=== PATIENT | female | born 1995 | race Two or more races ===

== ENCOUNTER 2020-06-29 09:38 | Emergency (ER) | payer MEDICAID ==
[~2020-06-29] VITALS: Ht 165.1 cm; Wt 83.9 kg
[2020-06-29 10:33] VITALS: BP 111/69
== END 2020-06-29 10:33 | disposition home or self-care (01) ==
LOC: ER 09:38
DX: O23.43 Unspecified infection of urinary tract in pregnancy, third trimester (principal); O26.893 Other specified pregnancy related conditions, third trimester; J06.9 Acute upper respiratory infection, unspecified; Z3A.29 29 weeks gestation of pregnancy
CPT/HCPCS: 81002

== ENCOUNTER 2020-08-18 09:50 | Observation (INO) | payer MEDICAID | END 2020-08-18 11:26 | disposition home or self-care (01) | LOC: LDRP 09:50 | PROVIDERS: ADMIT Specialist; ATTEND Specialist | DX: O24.410 Gestational diabetes mellitus in pregnancy, diet controlled (principal); Z3A.35 35 weeks gestation of pregnancy | CPT/HCPCS: 59025; 76818; 81002; 82962; G0378 ==

== ENCOUNTER 2020-08-22 09:49 | Observation (INO) | payer MEDICAID ==
[~2020-08-22 09:49] MED LIST: PREN-96 PO
[2020-08-22] MEDS ORDERED: PREN-96 PO (10:43)
== END 2020-08-22 10:42 | disposition home or self-care (01) ==
LOC: LDRP 09:49
PROVIDERS: ADMIT Obstetrics & Gynecology; ATTEND Obstetrics & Gynecology
DX: O24.419 Gestational diabetes mellitus in pregnancy, unspecified control (principal); Z3A.35 35 weeks gestation of pregnancy
CPT/HCPCS: 59025; 76818; 81002; 82948; 82962; G0378

== ENCOUNTER 2020-08-25 10:45 | Observation (INO) | payer MEDICAID ==
--- NOTE | 2020-08-25 11:36 | NUR ---
PRE OP IN HOUSE COVID TEST COLLECTED.
== END 2020-08-25 12:15 | disposition home or self-care (01) ==
LOC: LDRP 10:45
PROVIDERS: ADMIT Specialist; ATTEND Specialist
DX: O24.419 Gestational diabetes mellitus in pregnancy, unspecified control (principal); Z20.828 Contact with and (suspected) exposure to other viral communicable diseases; O36.5930 Maternal care for other known or suspected poor fetal growth, third trimester, not applicable or unspecified; Z3A.36 36 weeks gestation of pregnancy
CPT/HCPCS: 59025; 76818; 81002; 82948; 82962; G0378; U0003

== ENCOUNTER 2020-08-28 08:00 | Inpatient (IN) | payer MEDICAID ==
[~2020-08-28] VITALS: Ht 165.1 cm; Wt 79.4 kg
[2020-08-28] VITALS (11 sets, daily range): BP systolic 95–105; BP diastolic 49–61
[2020-08-28] MEDS ORDERED: LACTATED RINGER'S 1,000 ML IV ONE (08:15)
[2020-08-28] MEDS ORDERED: ceFAZolin 1GM/50ML 50 ML IV ONE (08:15)
[2020-08-28 08:59] LABS: Basophils # (auto) 0 10 ^3/uL (0-0.2); Basophils % (auto) 0.5 % (0.0-2.0); Eosinophils # (auto) 0 10 ^3/uL (0-0.8); Eosinophils % (auto) 0.5 % (0.0-7.0); Hemoglobin 11.1 g/dL (12.2-16.2); Lymphocytes # (auto) 1.4 10 ^3/uL (0.4-5.4); Lymphocytes % (auto) 20.6 % (10.0-50.0); Mean Corpuscular Hemoglobin 29.6 pg (28.0-32.0); Mean Corpuscular Hgb Conc. 33.6 g/dL (32.0-36.0); Mean Corpuscular Volume 88.2 fL (80.0-100.0); Monocytes # (auto) 0.5 10 ^3/uL (0-1.3); Monocytes % (auto) 7.4 % (0.0-12.0); Neutrophils # (auto) 4.7 10 ^3/uL (1.6-8.6); Nucleated Red Blood Cells % 0.1 %; Platelet Count (auto) 162 10^3/uL (140-450); Red Blood Cells 3.74 10^6/uL (4.0-5.20); Red Cell Distribution Width 17.2 % (11.8-14.3); White Blood Cell 6.6 10^3/uL (4.4-10.8)
[2020-08-28 09:02] LABS: Urine Bacteria FEW /hpf (None Seen); Urine Blood Negative /uL (Negative); Urine Mucus FEW (None Seen); Urine Specific Gravity 1.016 (1.001-1.035); Urine WBC 4 /hpf (0 - 5)
[2020-08-28 09:13] LABS: INR 0.92 (0.9-1.15); Partial Thromboplastin Time 26.8 sec (23.0-31.2)
[2020-08-28 09:23] LABS: Albumin 2.8 g/dL (3.4-5.0); Calcium 8.7 mg/dL (8.5-10.1); Potassium 3.6 mmol/L (3.5-5.1)
[2020-08-28 09:26] LABS: BUN/Creatinine Ratio 19.4; Bilirubin, Total 0.2 mg/dL (0.2-1.0); Total Protein 6.4 g/dL (6.4-8.2)
[2020-08-28] MEDS ORDERED: TETRACAINE 1% INJ 2 ML VIAL IJ ONE (12:54)
[2020-08-28] MEDS ORDERED: PHENYLEPHRINE HCL 10 MG/ML VL IV ONE (12:55)
[2020-08-28] MEDS ORDERED: MORPHINE SULF(PF) 0.5MG/ML 10ML VIAL ONE (13:04)
[2020-08-28] MEDS ORDERED: MIDAZOLAM HCL 1MG/1ML-2 ML VIAL ONE (13:04)
[2020-08-28] MEDS ORDERED: fentaNYL CITRATE 100 MCG/2 ML VL ONE (13:04)
[2020-08-28] MEDS ORDERED: oxyTOCIN 10 UNIT/ML 10ML VIAL ONE (13:27)
[2020-08-28] MEDS ORDERED: ONDANSETRON HCL 4 MG/2 ML VIAL IV PRN ×4 (14:15→18:00)
[2020-08-28] MEDS ORDERED: LACT. RINGERS/OXYTOCIN 20UNITS 1,000 ML IV SCH (14:15)
[2020-08-28] MEDS ORDERED: MORPHINE SULFATE 4 MG/ML SYR/VIAL IV PRN ×2 (14:15→15:00)
[2020-08-28] MEDS ORDERED: ceFAZolin 1GM/50ML 50 ML IV SCH ×2 (14:15)
[2020-08-28] MEDS ORDERED: HYDROmorphone HCL 2 MG/ML VL IV PRN ×2 (15:00)
[2020-08-28] MEDS ORDERED: MIDAZOLAM HCL 1MG/1ML-2 ML VIAL IV PRN (15:00)
[2020-08-28] MEDS ORDERED: ePHEDrine SULFATE 50 MG/ML AMP IV PRN (15:00)
[2020-08-28] MEDS ORDERED: NALBUPHINE HCL 10 MG/1ml INJECTION SUBCUT ONE (15:00)
[2020-08-28] MEDS ORDERED: LABETALOL HCL 5 MG/ML 4ML SYRINGE IV PRN (15:00)
[2020-08-28] MEDS ORDERED: diphenhdrAMINE HCL 50 MG/1 ML VL IV PRN (15:00)
[2020-08-28] MEDS ORDERED: NALOXONE HCL 0.4 MG/ML VIAL IV PRN (15:00)
[2020-08-28] MEDS ORDERED: DexAMETHasone SOD PHOS 10MG/1ML VIAL INJ IV PRN (15:00)
[2020-08-28] MEDS: LACTATED RINGER'S 1,000 ML IV SCH ×2 (17:21→21:45)
--- NOTE | 2020-08-28 17:38 | NUR ---
Assumed care of patient after receiving report from Garrett Medina RN .
[2020-08-28] MEDS: KETOROLAC TROMETH 30 MG/ML 1ML VIAL IV PRN (19:20)
[2020-08-28] MEDS: ceFAZolin 1GM/50ML 50 ML IV SCH (21:38)
[2020-08-28 22:23] LABS: Basophils # (auto) 0 10 ^3/uL (0-0.2); Basophils % (auto) 0.3 % (0.0-2.0); Eosinophils # (auto) 0 10 ^3/uL (0-0.8); Eosinophils % (auto) 0.2 % (0.0-7.0); Hematocrit 33.6 % (36.0-46.0); Hemoglobin 11.4 g/dL (12.2-16.2); Lymphocytes # (auto) 1.6 10 ^3/uL (0.4-5.4); Lymphocytes % (auto) 15.3 % (10.0-50.0); Mean Corpuscular Hemoglobin 29.9 pg (28.0-32.0); Monocytes # (auto) 0.6 10 ^3/uL (0-1.3); Monocytes % (auto) 6.3 % (0.0-12.0); Neutrophils # (auto) 7.9 10 ^3/uL (1.6-8.6); Neutrophils % (auto) 77.9 % (37.0-80.0); Nucleated Red Blood Cells % 0.1 %; Platelet Count (auto) 164 10^3/uL (140-450); Red Blood Cells 3.82 10^6/uL (4.0-5.20); Red Cell Distribution Width 16.9 % (11.8-14.3); White Blood Cell 10.2 10^3/uL (4.4-10.8)
[2020-08-29] VITALS (15 sets, daily range): BP systolic 92–122; BP diastolic 50–77
--- NOTE | 2020-08-29 05:00 | NUR ---
Godwin catheter dc'd Order to discontinue godwin catheter. Godwin dc'd with clean technique following deflation of balloon. Patient tolerated well with no complaints of pain. Continue care.
[2020-08-29] MEDS: ceFAZolin 1GM/50ML 50 ML IV SCH (05:25)
[2020-08-29] MEDS: KETOROLAC TROMETH 30 MG/ML 1ML VIAL IV PRN (05:25)
--- NOTE | 2020-08-29 06:50 | NUR ---
Ambulation: Patient OOB with standby assistance by RN. Patient ambulated to bathroom with steady gait. Patient unable to void at this time. Pericare teaching provided with returned demonstration by patient. Clean gown provided and bed linen changed. Patient ambulated back to chair with steady gait and no distress noted.
[2020-08-29] MEDS ORDERED: BISACODYL 10 MG RECT SUPP PR PRN (09:00)
[2020-08-29 09:10] LABS: Basophils # (auto) 0 10 ^3/uL (0-0.2); Basophils % (auto) 0.3 % (0.0-2.0); Eosinophils # (auto) 0 10 ^3/uL (0-0.8); Eosinophils % (auto) 0.1 % (0.0-7.0); Hematocrit 33.2 % (36.0-46.0); Hemoglobin 11.1 g/dL (12.2-16.2); Lymphocytes # (auto) 0.5 10 ^3/uL (0.4-5.4); Lymphocytes % (auto) 5.6 % (10.0-50.0); Mean Corpuscular Hemoglobin 29.7 pg (28.0-32.0); Mean Corpuscular Hgb Conc. 33.4 g/dL (32.0-36.0); Mean Corpuscular Volume 88.8 fL (80.0-100.0); Monocytes # (auto) 0.5 10 ^3/uL (0-1.3); Monocytes % (auto) 5.5 % (0.0-12.0); Neutrophils # (auto) 8.4 10 ^3/uL (1.6-8.6); Neutrophils % (auto) 88.5 % (37.0-80.0); Platelet Count (auto) 167 10^3/uL (140-450); Red Blood Cells 3.74 10^6/uL (4.0-5.20); Red Cell Distribution Width 17.2 % (11.8-14.3); White Blood Cell 9.5 10^3/uL (4.4-10.8)
[2020-08-29] MEDS: DOCUSATE CALCIUM 240 MG CAP PO SCH (10:10)
[2020-08-29] MEDS: DOCUSATE SOD 100 MG CAP PO SCH (10:10)
[2020-08-29] MEDS: HYDROcodone-ACET 5/325MG TAB PO PRN ×3 (10:12→19:15)
[2020-08-29] MEDS: SIMETHICONE 80 MG CHEWABLE TABLET PO SCH ×2 (12:17→17:55)
[2020-08-29] MEDS: IBUPROFEN 800 MG TAB PO PRN (12:19)
[2020-08-29] MEDS ORDERED: ceFAZolin 1GM/50ML 50 ML IV ONE ×2 (12:57→13:00)
--- NOTE | 2020-08-29 21:50 | NUR ---
2150: This RN responses to pt call light. This RN enter pt's room and finds pt sitting up in bed feeding infant with bottle. RN asks pt what does she need and pt struggles to communicate. RN continues attempting to communicate with pt. Pt unable to verbally communicate at this time - PT. unable to answer Person, Place, Time, Date or Orientation questions. RN notifies charge nurse and additional [facility] staff. 2200: Charge nurse and [facility] staff enter room to assist RN. Pt. altered and unable to fully communicate. Call is placed for a flagsetter. VS taken: BP 132/74, pulse 115, RR 18, O2 placed on pt at 5 LPM via non rebreather face mask. Pt pulse ox 100%. 2209: Gabbie screening technician arrives to pt room and attempts to communicate with pt in [place]ambian. Pt speaking non understandable words. PT. unable to answer Person, Place, Time, Date or Orientation. questions. 2211: Code Assist called. See code assist sheet for further notes. 2227: Straight cath performed for U/A by this RN (Brigitte Fitzgerald) per Jonatan Banda, INSTRUCTOR OF SPANISH order. 2235: Chest x-ray performed at bedside per IN[employer] SPANISH order. 2240: cogeneration technician at bedside to draw pt's blood per IN[employer] SPAN[employer] order. PT. able to articulate her full name however unable to articulate Place, Time, Date or Orientation. 2245: LR bolus of 500 completed per INSTRUCTOR OF SPANISH orders, LR now running at 125mL/hr. VS: BP 122/66, pulse 109, pulse ox 96, T 100.5, pt no longer on O2 at this time. RN remains at bedside with pt. 2304:Radiology techs call for pt, states they will come to help transport pt. 2310: Pt leaves the [facility] unit via hospital bed and transported for CT scan by Radiology techs. 2320: Pt returns to unit and placed back in her room. Pt communicating more at this time and is able to answer simple questions in [place]ambian. PT. accurately answers Person, Place, Time and Date questions however, does not know name of hospital where she is currently admitted. VS taken: BP 106/63, pulse 113, pulse ox 96% on room air. 2330: T 99.4, pt sitting up in bed at this time and seen checking her phone.
--- NOTE | 2020-08-29 22:35 | NUR ---
Dr. Lan given report on PT. status including altered level of consciousness and subsequent Code Assist with Jonatan Banda NP as the at-bedside Provider. Dr. Lan verbalizes understanding.
--- NOTE | 2020-08-29 22:56 | NUR ---
This RN calls Radiology - no answer.
[2020-08-29 22:58] LABS: Basophils # (auto) 0 10 ^3/uL (0-0.2); Basophils % (auto) 0.7 % (0.0-2.0); Eosinophils # (auto) 0.1 10 ^3/uL (0-0.8); Hemoglobin 10.6 g/dL (12.2-16.2); Lymphocytes # (auto) 0.5 10 ^3/uL (0.4-5.4); Lymphocytes % (auto) 8.1 % (10.0-50.0); Mean Corpuscular Hemoglobin 30.1 pg (28.0-32.0); Mean Corpuscular Hgb Conc. 34.4 g/dL (32.0-36.0); Mean Corpuscular Volume 87.6 fL (80.0-100.0); Monocytes # (auto) 0.6 10 ^3/uL (0-1.3); Monocytes % (auto) 9.5 % (0.0-12.0); Neutrophils # (auto) 5.2 10 ^3/uL (1.6-8.6); Neutrophils % (auto) 80.7 % (37.0-80.0); Platelet Count (auto) 147 10^3/uL (140-450); Red Blood Cells 3.53 10^6/uL (4.0-5.20); Red Cell Distribution Width 17.1 % (11.8-14.3); White Blood Cell 6.5 10^3/uL (4.4-10.8)
--- NOTE | 2020-08-29 22:58 | NUR ---
DASHAWN transfers this RN to alternate telephone extension in Radiology. Report on STAT Head CT ordered given to Jp who verbalizes he will call me back when ready for Patient.
--- NOTE | 2020-08-29 23:03 | NUR ---
Jp from Radiology calls this RN to bring Patient to [facility] Lobby.
[2020-08-29 23:21] LABS: Albumin 2.4 g/dL (3.4-5.0); BUN/Creatinine Ratio 10.2; Calcium 8.9 mg/dL (8.5-10.1); Potassium 3.6 mmol/L (3.5-5.1)
[2020-08-29 23:27] LABS: Bilirubin, Total 0.5 mg/dL (0.2-1.0); Total Protein 6.1 g/dL (6.4-8.2)
[2020-08-29 23:42] LABS: Urine Bacteria FEW /hpf (None Seen); Urine Blood TRACE /uL (Negative); Urine Hyaline Cast FEW /lpf (0 - 2); Urine Mucus FEW (None Seen); Urine Specific Gravity 1.012 (1.001-1.035); Urine WBC 4 /hpf (0 - 5)
[2020-08-30] VITALS (9 sets, daily range): BP systolic 92–117; BP diastolic 53–81
--- NOTE | 2020-08-30 00:05 | NUR ---
CT, CXR, UA, Lactic, CMP, CBC results printed and hand carried to Jonatan Banda NP who reviews and verbalizes PT. is stable to remain on [facility] with Neurology Consult to be ordered.
--- NOTE | 2020-08-30 00:10 | NUR ---
Neurology Consult ordered by Shannon Banda NP for 08/30/20 @ 0010.
[2020-08-30] MEDS ORDERED: SODIUM CHLORIDE 0.9% 500 ML IV ONE (00:15)
[2020-08-30] MEDS: SIMETHICONE 80 MG CHEWABLE TABLET PO SCH (00:38)
[2020-08-30] MEDS: IBUPROFEN 800 MG TAB PO PRN ×2 (00:38→09:02)
[2020-08-30] MEDS: DOCUSATE SOD 100 MG CAP PO SCH ×3 (00:38→22:30)
--- NOTE | 2020-08-30 00:40 | NUR ---
Kristin in X given routine Neurology Consult Order. Kristin explains that Dr. Restrepo will go to X this morning and retrieve all pending Patient consult requests.
--- NOTE | 2020-08-30 01:00 | NUR ---
This RN at bedside, seizure pads placed on bed rails. Pt instructed to call for assistance when needs to get out of bed to go to the bathroom. Pt verbalizes understanding. VS reviewed, will continue to monitor. Pt resting in bed at this time.
--- NOTE | 2020-08-30 02:00 | NUR ---
This RN at pt bedside. Pt sleeping at this time. VS reviewed at this time. remains in the nursery with staff.
--- NOTE | 2020-08-30 03:00 | NUR ---
This RN at pt bedside. Pt sleeping at this time. VS reviewed at this time. remains in the nursery with staff.
--- NOTE | 2020-08-30 04:15 | NUR ---
Pt request to get out of bed to go to the bathroom. Pt ambulates to bathroom with RN standby assist. No distress noted. Pt able to void 600 mL of clear yellow urine without difficulty. Pericare performed and linens changed. Pt ambulates back to bed via steady gait. VS reviewed.
[2020-08-30 06:07] LABS: RPR Non Reactive (Non Reactive)
--- NOTE | 2020-08-30 07:00 | NUR ---
Lower abdominal incision clean, dry, and well approximated with 13 adina present and intact. Site left open to air. Addendum: 08/30/20 at 0837 by DELFIN WALTER RN RN Amended: Links added.
--- NOTE | 2020-08-30 08:07 | NUR ---
Dr. Lan at the bedside for assessment.
--- NOTE | 2020-08-30 09:00 | NUR ---
Dr. Restrepo at the [facility] for assessment.
[2020-08-30] MEDS: DOCUSATE CALCIUM 240 MG CAP PO SCH (10:05)
[2020-08-30] MEDS: HYDROcodone-ACET 5/325MG TAB PO PRN ×3 (10:06→23:00)
--- NOTE | 2020-08-30 10:15 | NUR ---
Tech at bedside for EEG.
--- NOTE | 2020-08-30 10:30 | NUR ---
Darius from radiology at bedside to explain MRI to patient. Patient verbalizes understanding and states she has anxiety of closed spaces, will notify Dr. Restrepo.
--- NOTE | 2020-08-30 11:05 | NUR ---
Dr. Restrepo returns call to unit. Notified Dr. Restrepo pt states feels nervous about being in enclosed space for MRI. Orders received for 1mg Ativan IVP ONCE. Orders will be followed.
[2020-08-30] MEDS ORDERED: LORazepam 2MG/ML-1ML VIAL IV ONE (11:15)
--- NOTE | 2020-08-30 11:30 | NUR ---
EEG COMPLETED AT BEDSIDE. PRIMARY RN AWARE.
--- NOTE | 2020-08-30 11:55 | NUR ---
Patient's Aunt at bedside, returned to room via open crib.
--- NOTE | 2020-08-30 12:30 | NUR ---
Pt to MRI via wheelchair, accompanied by Tech. No distress noted. Pt's aunt (has second band) remains at bedside to care for during exam.
--- NOTE | 2020-08-30 13:19 | NUR ---
Pt returned to unit via wheelchair s/p MRI exam, accompanied by
[2020-08-31 03:56] VITALS: BP 112/70
[2020-08-31 03:59] VITALS: BP 112/70
[2020-08-31] MEDS: IBUPROFEN 800 MG TAB PO PRN ×2 (04:32→19:13)
--- NOTE | 2020-08-31 08:55 | NUR ---
Dr. Restrepo contacted INformed Dr. Gtz office staff, neuro clearance needed for pt prior to discharge. Per staff, will relay message to Dr. Restrepo and have him return call to unit.
[2020-08-31] MEDS: DOCUSATE CALCIUM 240 MG CAP PO SCH (09:53)
[2020-08-31] MEDS: HYDROcodone-ACET 5/325MG TAB PO PRN ×3 (09:54→22:43)
[2020-08-31] MEDS: DOCUSATE SOD 100 MG CAP PO SCH ×2 (09:54→22:44)
[2020-08-31 10:45] VITALS: BP 106/62
--- NOTE | 2020-08-31 12:21 | NUR ---
Assessment Patient is a 24-year-old female who is alert and oriented. Patient primary language is Turkmen. Prior to admission patient lived with family. Patient aunt Annabelle was at bedside at the time of assessing patient. Patient aunt Annabelle will assist with baby upon discharge. Patient has all supplies as well as car seat for baby and will be . Patient has transportation home upon discharge. Patient has medical insurance for herself and baby and will be following up with provider appt post discharge. No additional needs or resource is needed at this time. Patient states she has great family support who can assist with baby when needed. Informed bed side nurse.
[2020-08-31 15:00] VITALS: BP 96/59
--- NOTE | 2020-08-31 15:00 | NUR ---
Dr. Restrepo paged Dr. Restrepo returns call to unit, Informed Dr. Gtz neuro clearance requred for discharge, pt requests to be informed of all test results. Per Dr. Gtz will see pt around 7-8 pm, cannot come to clear pt at this time.
[2020-08-31 19:00] VITALS: BP 109/55
--- NOTE | 2020-08-31 20:03 | NUR ---
DR LEWIS PAGED
--- NOTE | 2020-08-31 20:50 | NUR ---
DR LEWIS AT BEDSIDE. PT IS OKAY TO GO HOME AND WANTS PT TO FOLLOW UP WITH HIM. WANTS PATIENT TO HAVE A CD. INFORMATION WILL BE GIVEN TO PATIENT. CD ORDERED.
--- NOTE | 2020-08-31 21:27 | NUR ---
IV removal IV DC'd with clean technique, catheter fully intact. Pressure dressing applied to site. Patient tolerated well. NOTE:
--- NOTE | 2020-08-31 21:29 | NUR ---
aunt of patient appears lethargic. they do not have carseat for infant. aunt will go home in morning after resting to retrieve carseat. pt wishes to leave in the morning.
[2020-08-31 23:00] VITALS: BP 115/63
[2020-09-01 03:00] VITALS: BP 103/59
[2020-09-01] MEDS: SIMETHICONE 80 MG CHEWABLE TABLET PO SCH (05:19)
[2020-09-01 06:54] VITALS: BP 120/69
--- NOTE | 2020-09-01 09:15 | NUR ---
Discharge: Discharge instructions given as ordered. Pt encouraged to follow up with OFFICE ADMINISTRATION as instructed. All questions and concerns addressed. Patient verbalized understanding. Medication reconciliation completed and copy given to patient. All required/requested vaccines given and copies of vaccinations given to patient. Patient encouraged to prepare to depart unit.
--- NOTE | 2020-09-01 09:55 | NUR ---
Discharge: Patient ambulated to vehicle with all personal belongings, accompanied by staff and family member. No distress noted at time of departure, no adverse changes in status since initial assessment.
== END 2020-09-01 09:55 | disposition home or self-care (01) | DRG 540 ==
LOC: LDRP 08:00
PROVIDERS: ADMIT Obstetrics & Gynecology; ATTEND Obstetrics & Gynecology
PROC: 10D00Z1 Extraction of Products of Conception, Low, Open Approach (ICD-10-PCS; principal; 2020-08-28 13:03)
DX: O24.420 Gestational diabetes mellitus in childbirth, diet controlled (principal); O34.211 Maternal care for low transverse scar from previous cesarean delivery; Z37.0 Single live birth; O99.354 Diseases of the nervous system complicating childbirth; D43.2 Neoplasm of uncertain behavior of brain, unspecified; Z3A.39 39 weeks gestation of pregnancy; Z80.8 Family history of malignant neoplasm of other organs or systems
CPT/HCPCS: 36415; 59025; 70450; 70553; 71045; 80053; 81001; 82962; 83605; 85025; 85610; 85730; 86592; 86850; 86900; 86901; 87040; 94762; 95819; 96360; 96361; 96374; 96375; G0378; J0690; J1885; J2250; J2590